=== PATIENT | male | born 1985 | race Caucasian/White ===

== ENCOUNTER → 2023-05-29 13:08 | Outpatient (CLI) | payer OTHER, SELFPAY ==
--- NOTE | 2023-06-04 11:03 | PM.PFT.1 ---
Pulmonary Function Test Referral & Results Date Patient Seen: 05/29/23 Results: The spirometry demonstrates an FVC of 2.50 L which is 50% of predicted. The FEV1 was measured at 1.68 L which is 42% of predicted. The FEV1/FVC ratio was 67 which is 83% of predicted. No bronchodilator was administered Lung volumes show an SVC of 2.86 L which is 59% of predicted. The diffusing capacity was measured at 29.31 which is 98% of predicted. Interpretation: This study demonstrates moderately severe obstructive lung disease based on reduction in FEV1 although FEV1/FVC ratio is relatively preserved There is also moderate reduction in lung volumes suggesting the presence of moderate restrictive lung disease which may explain some of the abnormality in the FEV1 above Clinical correlation suggested
== END ==
PROVIDERS: Referring Provider Family Medicine; Visit Provider Family Medicine
DX: J98.4 Other disorders of lung (principal); J98.8 Other specified respiratory disorders
CPT/HCPCS: 94010; 94729